=== PATIENT | female | born 1950 | race Caucasian/White ===

== ENCOUNTER 2022-09-02 12:06 | Outpatient (CLI) | payer MEDICARE, BC, SELFPAY ==
[2022-09-02 22:56] LABS: Basophils Absolute Auto 0.04 K/uL (0.00-0.30); Basophils Percent Auto 0.5 % (0.0-3.0); Eosinophils Absolute Auto 0.17 K/uL (0.00-0.50); Hematocrit 39.6 % (33.0-51.0); Immature Granulocytes Abs Auto 0.01 K/uL (0.00-0.30); Immature Granulocytes Pct Auto 0.1 %; Lymphocytes Absolute Auto 2.22 K/uL (0.90-2.90); Lymphocytes Percent Auto 25.6 % (20-44); Mean Corpuscular HGB Conc 33 gm/dL (32-36); Mean Corpuscular Hemoglobin 29 pg (26-34); Mean Corpuscular Volume 88 fL (80-100); Monocytes Percent Auto 8.1 % (0.0-11.0); Neutrophils Absolute Auto 5.54 K/uL (1.7-7.0); Neutrophils Percent Auto 63.7 % (42.0-72.0); Platelet Count* 303 K/uL (140-440); Red Blood Count 4.51 m/uL (4.00-5.20); White Blood Count* 8.68 K/uL (4.50-11.00)
[2022-09-02 22:57] LABS: Slide Review Reflex No
[2022-09-02 23:13] LABS: Chloride* 105 mmol/L (96-114); Potassium* 3.7 mmol/L (3.6-5.1); Sodium* 138 mmol/L (135-149)
[2022-09-02 23:15] LABS: Alkaline Phosphatase* 99 U/L (40-150); Aspartate Amino Transferase* 33 U/L (12-35); Bilirubin Total* 0.9 mg/dL (0.1-1.5); Carbon Dioxide* 27 mmol/L (20-32); Cholesterol* 138 mg/dL (90-199); Creatinine* 0.6 mg/dL (0.5-1.5); Estimated Glomerular Filt Rate 96 ml/min; Total Protein* 6.3 g/dL (6.0-8.3)
[2022-09-02 23:16] LABS: Alanine Aminotransferase* 30 U/L (4-35); Blood Urea Nitrogen* 22 mg/dL (7-30); Calcium* 10.1 mg/dL (8.4-10.6); Glucose* 90 mg/dL (60-115); HDL Cholesterol* 44 mg/dL (>=50); LDL Cholesterol Calculated 64 mg/dL (<100); Triglycerides* 148 mg/dL (40-149)
[2022-09-05 05:04] LABS: Vitamin D, 1,25-Dihydroxy 49.7 pg/mL (19.9-79.3)
== END 2022-09-02 12:07 | disposition home or self-care (01) ==
PROVIDERS: PCP Family Medicine; Visit Provider Physician Assistant
DX: E78.5 Hyperlipidemia, unspecified (principal); I10 Essential (primary) hypertension; E66.9 Obesity, unspecified; S82.402A Unspecified fracture of shaft of left fibula, initial encounter for closed fracture; Z13.21 Encounter for screening for nutritional disorder; M85.80 Other specified disorders of bone density and structure, unspecified site
CPT/HCPCS: 80053; 80061; 82652; 85025

== ENCOUNTER 2022-09-03 07:31 | Day surgery (SDC) | payer MEDICARE, BC, SELFPAY ==
[2022-09-03] VITALS (11 sets, daily range): BP systolic 116–162; BP diastolic 45–85; PULSE 59–76; RESP 16–18; TEMP 36.4–36.6; O2SAT 92–98; BMI 32.3
[2022-09-03] MEDS: LACTATED RINGERS 1000 ML 1,000 ML 100 ML IV (07:50)
[2022-09-03] MEDS: SODIUM CHLORIDE 0.9 % (FLUSH) 10 ML SYRINGE IVF (07:50)
--- NOTE | 2022-09-03 07:58 | SUR.PREOP ---
Patient's home covid test negative.
[2022-09-03] MEDS: MIDAZOLAM HCL 1 MG/ML inj IVP (09:17)
[2022-09-03] MEDS: fentaNYL 100 MCG/2 ML inj IVP (09:17)
--- NOTE | 2022-09-03 09:28 | SUR.PREOP ---
TIME?OUT:?0915 PT/Rico OLIVIA RN/Tesfaye GAONA MDA?VERIFICATION?OF?SURGICAL?SITE,?PROCEDURE,?AND?CONSENT OBTAINED?PRIOR?TO?INVASIVE?PROCEDURE.
[2022-09-03] MEDS: CEFAZOLIN 2 GM INJ IVP (09:40)
--- NOTE | 2022-09-03 09:45 | CRLHL7_ITS ---
For Patients: As a result of the Cures Act, medical imaging exams and procedure reports are released immediately into your electronic medical record. You may view this report before your referring provider. If you have questions, please contact your health care provider. Indication: Left Ankle IM Nailing Technique: Two fluoroscopic images of the left ankle. Fluoroscopic time 55.2 seconds. IMPRESSION: Fluoroscopic guidance for open reduction internal fixation of fibular fracture Dictated by Kin Torres MD @ 09/03/2022 11:09:47 AM (Electronically Signed)
--- NOTE | 2022-09-03 10:24 | P.ORPRC_ITS ---
Procedure Note Date of procedure: 09/03/22 Procedure: PREOPERATIVE DIAGNOSIS: Left ankle Duque B fracture POSTOPERATIVE DIAGNOSIS: Left ankle Duque B fracture NAME OF OPERATION: ORIF SURGEON: Rupert Miramontes MD PREPRESS MANAGER: PAOLO Bar ANESTHESIA: Spinal plus popliteal block ESTIMATED BLOOD LOSS: 0 mL COMPLICATIONS: None SPECIMENS: None DRAINS: None PREOPERATIVE ANTIBIOTICS: Ancef 2 g INDICATIONS: The patient is a 71-year-old who sustained a left ankle fracture. There is 1-2 mm of widening on a gravity stress mortise view. Therefore, ORIF was recommended. The risks, benefits and expected outcomes were discussed in detail. These included but were not limited to: Infection, bleeding, injury to blood vessel or nerve, venous thromboembolism. All questions were answered to their satisfaction. Use of an wet process miller head assistant was necessary throughout the case for patient positioning and safety, soft tissue retraction and closure. PROCEDURE: A popliteal block was placed by anesthesia. Spinal anesthesia was administered. The lower extremity was prepped and draped in the usual sterile fashion. A guide pin was placed in the center of the distal fragment of the fibula, percutaneously. Its placement was confirmed with the image intensifier in multiple views. A stab incision was made around the guide pin. The opening Reamer was used. The guide pin was removed. The reduction finger was placed in the distal fragment. The distal fragment was held reduced. The reduction fi nger was taken across the fracture site. The longer, flexible guide pin was placed across the fracture, engaging the canal of the proximal fragment. The opening reamer was placed again, past the fracture site. The 3.2 mm Reamer was Used in the proximal fragment. We placed the Arthrex 3 mm x 130 mm Intramedullary nail. The talons were deployed. We placed 2 screws in the distal fragment. Abduction stress was placed on the foot. There is no widening through the syndesmosis. The nozzle and sleeve worker was removed, the end cap was placed. This provides an anatomic reduction of the fibula with excellent fixation. Implants were imaged in the AP, mortise and lateral views and were felt to be well placed with an excellent reduction. The talus is nicely reduced under the tibial plafond. The wounds were irrigated with normal saline. The wet process miller head assistant closed the skin with a 4-0 Monocryl in a subcuticular fashion. Glue was used to seal the skin. The wet process miller head assistant placed a dry dressing and short leg Esteban Olivo splint. Sponge and needle counts were correct x 2. The patient tolerated the procedure well. There were no apparent complications. They were carefully transferred to the hospital bed and taken to the postanesthesia care unit in satisfactory condition. PLAN: The patient will be discharged to home. They will remain strict nonweightbearing on the lower extremity. They will continue to work on ice and elevation. They will follow up in the office in 2 weeks for a wound check and three views of the ankle out of the splint, prior to being seen, in preparation for a CAM walker, early weight-bearing and physical therapy.
--- NOTE | 2022-09-03 10:41 | W.ANESCHARGE ---
Anesthesia Charges Start Date/Time Anesthesia Start Date: 09/03/22 Anesthesia Start Time: 09:28 Stop Date/Time Anesthesia Stop Date: 09/03/22 Anesthesia Stop Time: 10:40 Summary Emergency: No Extremes of Age: Over 70-CPT 31083
--- NOTE | 2022-09-03 10:43 | W.ANESCHARGE ---
Anesthesia Charges Start Date/Time Anesthesia Start Date: 09/03/22 Anesthesia Start Time: 09:28 Stop Date/Time Anesthesia Stop Date: 09/03/22 Anesthesia Stop Time: 10:40 Summary Emergency: No Extremes of Age: Over 70-CPT 98563
--- NOTE | 2022-09-03 10:44 | W.PM.NB ---
Nerve Block Nerve Block Time Seen by Provider: 09:20 Date Seen: 09/03/22 Type of block requested by surgeon for post-operative analgesia: popliteal Side: left Time out performed: Yes Verification of patient name: Yes Verification of date of : Yes Site marking: site marked Name of person performing procedure: Tl Continuous monitoring Was continuous monitoring of O2 sat, B/P, patient monitor, recorded every 15 minutes?: Yes Procedure Checklist: sterile prep, needles and gloves Ultrasound guided. Images saved: Yes Medications given in 5ml increments after negative aspiration: Ropivicaine %: 0.5 mL: 20 Needle gauge: 20 Patient tolerated procedure well: Yes Additional comments: Needle noted adjacent to nerve Block Charges Block Charge (with Pro Fee): Sciatic Nerve Use of Ultrasound Machine for Block: Yes- US Guidance/pain block
--- NOTE | 2022-09-03 10:45 | W.PM.NB ---
Nerve Block Nerve Block Time Seen by Provider: 09:20 Date Seen: 09/03/22 Type of block requested by surgeon for post-operative analgesia: adductor canal Side: left Time out performed: Yes Verification of patient name: Yes Verification of date of : Yes Site marking: site marked Name of person performing procedure: Tl Continuous monitoring Was continuous monitoring of O2 sat, B/P, property assessment monitor, recorded every 15 minutes?: Yes Procedure Checklist: sterile prep, needles and gloves Ultrasound guided. Images saved: Yes Medications given in 5ml increments after negative aspiration: Ropivicaine %: 0.5 mL: 20 Needle gauge: 20 Patient tolerated procedure well: Yes Additional comments: Needle noted adjacent to nerve Block Charges Block Charge (with Pro Fee): Femoral Nerve Use of Ultrasound Machine for Block: Yes- US Guidance/pain block
== END 2022-09-03 12:03 | disposition home or self-care (01) ==
PROVIDERS: PCP Family Medicine; Visit Provider Orthopaedic Surgery
PROC: (CPT 27792; principal; 2022-09-03 09:45)
DX: S82.892A Other fracture of left lower leg, initial encounter for closed fracture (principal)
CPT/HCPCS: 27792; 01480; 64445; 64447; 73610; 76000; 76942; 99100; C1713; C1776; J0690; J1100; J2250; J2400; J2405; J2704; J2795; J3010; J7120

== ENCOUNTER 2022-11-27 10:02 | Outpatient (CLI) | payer MEDICARE, BC, SELFPAY ==
--- NOTE | 2022-11-27 10:15 | CRLHL7_ITS ---
For Patients: As a result of the Century Cures Act, medical imaging exams and procedure reports are released immediately into your electronic medical record. You may view this report before your referring provider. If you have questions, please contact your health care provider. BILATERAL SCREENING MAMMOGRAM WITH COMPUTER-AIDED DETECTION AND TOMOSYNTHESIS TECHNIQUE: CC and MLO views were obtained. These mammographic images have been obtained using full-field digital technique. These mammographic images were interpreted with the benefit of computer-aided detection. Breast Tomosynthesis was used in this interpretation. COMPARISON FILM: 10/16/21, 09/12/2020, 08/19/2019. FINDINGS: There are scattered areas of fibroglandular density. IMPRESSION: There is no radiographic evidence for malignancy. ASSESSMENT: BI-RADS Category 1: Negative RECOMMENDATION: Routine screening mammogram in 1 year. A lay language report of this examination will be provided to the patient. Kin Torres M.D. Diagnostic Radiologist [email or web address] STEFAN/adia Transcribed: 12:47 p.m. PT/Dictated by: Kin Torres MD @ 11/27/2022 12:03:00 PM (Electronically Signed)
== END 2022-11-27 10:03 | disposition home or self-care (01) ==
LOC: MAMMO 10:04
PROVIDERS: PCP Family Medicine; Visit Provider Family Medicine
DX: Z12.31 Encounter for screening mammogram for malignant neoplasm of breast (principal)
CPT/HCPCS: 77063; 77067

== ENCOUNTER 2023-07-01 09:01 | Outpatient (CLI) | payer MEDICARE, BC, SELFPAY ==
--- NOTE | 2023-07-01 09:15 | MR_ITS ---
[address] [address] Phone:?[phone] Fax:?[phone] Referring Physician Information: Rupert Miramontes M.D. [id number] [facility] [address] Phone:?[phone] Fax:?[phone] Patient:Peggy Aranda D.O.B:?1950 Sex:?Female Phone:?[phone] [facility] MRN:?[id number] Exam Date:?07/01/2023 EXAM: MRI OF THE LEFT KNEE CLINICAL INFORMATION: The patient is a 72-year-old with left knee pain. Evaluate for medial meniscal tear. PRIOR SURGERY: None reported. COMPARISON STUDIES: There are no prior studies available for comparison. TECHNICAL INFORMATION: Imaging was performed on a high-field, 1.5 Mirna MR scanner. Axial proton-density and fat-suppressed T2 imaging of the left knee was performed in addition to sagittal proton-density and fat-suppressed proton- density imaging. Coronal proton-density and coronal STIR imaging was also performed. FINDINGS: Articular/Extraarticular collections: Effusion: Mild. Popliteal cyst: Small to moderate, seen on sagittal series 6 image 10. Loose bodies: There is a loose body along the posterior aspect of the medial meniscal root on sagittal series 6 image 15, measuring approximately 7 mm in greatest dimension. No other well-defined intra-articular loose bodies are noted. Subcutaneous and extraarticular soft tissues: Nonspecific subcutaneous soft tissue edema and/or hemorrhage can be seen along the anterior, anteromedial, and anterolateral aspects of the left knee. Osseous structures: Cortical irregularity and subcortical cystic changes can be seen along the articular surfaces of the patellofemoral articulation with spurring along the articular margins. The findings are in keeping with patellofemoral osteoarthritis and are consistent with the chondromalacia and chondral loss described below. Additional reactive marrow edema can be seen along the medial and anteromedial aspects of the medial femoral condyle on coronal series 8 image 14 and on sagittal series 6 image 10, in keeping with chondromalacia and meniscal tearing discussed below. Benign-appearing cystic changes within the proximal fibula are noted. No other bony abnormalities are seen. Ligamentous structures: ACL: Intact and normal in appearance. PCL: Intact and normal in appearance. MCL: Intact and normal in appearance. LCL: Intact and normal in appearance. Posterolateral corner: Intact and normal in appearance. Posteromedial corner: No posteromedial corner soft tissue injury. Semimembranosus and pes anserine tendons demonstrate no tendinopathy or associated bursitis. Extensor mechanism/Patellar retinacular structures: Patellar tendon: Intact, without tendinopathy. Quadriceps tendon: Intact, without tendinopathy. Retinacula: The medial and lateral retinacula are intact. The medial patellofemoral ligament is intact. Medial compartment: Medial meniscus: The medial meniscus is abnormal in appearance. There is apical free edge and inferior surface tearing of the middle and posterior portions of the medial meniscus seen on sagittal series 5 image 12 and on coronal series 7 image 17. The area of medial meniscal tearing measures 23 mm in anteroposterior dimension and 27 mm in mediolateral dimension. The anterior horn appears intact. A small parameniscal cyst along the posterior periphery is thought to be present on sagittal series 6 image 12, measuring 5 mm in greatest dimension. Medial femoral condyle: Broad-based changes of grade II to III chondromalacia can be seen along the weightbearing surfaces of the medial femoral condyle. No full-thickness chondral defects are identified. Medial tibial plateau: Grade II chondromalacia can be seen along the weightbearing surfaces of the medial tibial plateau. Lateral compartment: Lateral meniscus: Apical free edge tearing and degeneration of the middle one third of the lateral meniscus can be seen on coronal series 7 image 18, measuring approximately 7 mm in greatest dimension. Additional degeneration, fraying, and irregularity of the posterior horn of the lateral meniscus is noted. The anterior horn appears intact. No parameniscal cyst formation is identified. Lateral femoral condyle: Grade II chondromalacia can be seen along the weightbearing surfaces of the lateral femoral condyle. Lateral tibial plateau: No chondromalacia, chondral defect, or osteochondral abnormality. Patellofemoral compartment: Patella: Full-thickness and near full-thickness chondral loss can be seen along the articular surfaces of the patella, including the apex as well as the medial and lateral facets on axial series 4 image 12. The area measures 31 mm in mediolateral dimension and 25 mm in craniocaudal dimension. Underlying bony changes are seen. Trochlea: Full-thickness and near full-thickness chondral loss can be seen along the articular surfaces of the femoral trochlea. Underlying bony changes are noted. Neurovascular: No definite neurovascular abnormalities are seen. CONCLUSION: 1. Broad-based tearing of the middle and posterior portions of the medial meniscus. There is apical free edge tearing of the middle one third of the lateral meniscus with additional degeneration and irregularity of the posterior horn. 2. Full-thickness and near full-thickness chondral loss involving the patellofemoral articulation with underlying bony change. 3. 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 4. The cruciate and collateral ligaments appear intact. 5. Mild knee joint effusion and [id number] popliteal cyst. 6. Loose body within the posterior aspect of the medial joint compartment. AEC Electronically signed on 07/01/2023 1:27:00 PM by Rusty Mcdonald M.D.
== END 2023-07-01 09:02 | disposition home or self-care (01) ==
LOC: MRI 09:02
PROVIDERS: PCP Family Medicine; Visit Provider Orthopaedic Surgery
DX: M25.562 Pain in left knee (principal); S83.242A Other tear of medial meniscus, current injury, left knee, initial encounter; M94.262 Chondromalacia, left knee; M25.462 Effusion, left knee; M71.22 Synovial cyst of popliteal space [Baker], left knee
CPT/HCPCS: 73721

== ENCOUNTER 2023-11-27 10:15 | Outpatient (RCR) | payer MEDICARE, BC, SELFPAY ==
--- NOTE | 2023-09-05 15:24 | PT.OPEX ---
PT [place] Outpatient Eval PT [facility] Outpatient Eval Start: 09/05/23 13:22 Freq: Status: Active Protocol: Document 09/05/23 13:22 CARLYLE (Rec: 09/05/23 13:40 BJGwen [id number]) E-signed By Jessica Naranjo DPT Physical Therapy Outpatient Evaluation Insurance Information Recert Due Date 12/04/23 Insurance Name Medicare B,[employer] Medical Diagnosis L knee pain L lateral/medial meniscus tear , L knee OA, L knee loose body Treating Diagnosis L knee pain/swelling, L knee weakness, limited tolerance for extended standing/walking/ stairs Subjective Subjective Patient reports chronic L knee pain/swelling, increased with activity including extended standing/walking and stairs. She reports pain range of 0-6/ 10. MD ordered an MRI showing meniscus tears, OA, and a loose body in her L knee. Patient states her treatment options included PT, knee scope, or total knee replacement. She wants to try PT to start, feels her pain has been manageable. She is able to recover from flare ups with rest and tylenol. Sleep has been ok. Patient reports being active with daily, household activities. She walks on her treadmill 1-2x/ week for about 30 mins. She has a trip planned for up [place] for hiking and snowshoeing. Patient is hoping to get an exercise program she can continue with to hold off on a knee replacement for as long as possible. Date of Last Physician Visit 08/29/23 Current Work Status Retired Precautions Treatment Precautions/Contraindications HTN, OA Assessment Assessment/Impression Patient is a 72 year old female with L knee pain/ swelling, L knee weakness, core/hip/glut weakness, limited tolerance for extended standing/walking/stairs. Pain range 0-6/10. Patient reports having recent MRI showing meniscus tears, OA, and a loose body in her L knee . She has increased pain/ swelling with increased activity including extended standing/walking, stairs. She is using tylenol, rest to manage her pain/sx. Reports hx of L ankle fx about 1 year ago when she fell on the ice. L knee ROM 0-0-135 degrees. R knee ROM 0-0-140 degrees. Patient with bilateral HS tightness, bilateral hypomobile patella. She is hoping to get a HEP to continue with to put off L knee replacement surgery as long as possible. Patient with bilateral quad/VMO weakness, core/hip/glut weakness. Gait is mildly limping, antalgic. Patient would benefit from skilled PT for pain/sx management, general strengthening including core/hip/glut/quad/ VMO to decrease stress to L knee, improved gait/stairs, and establishment of HEP. Plan of Care Rehabilitation Potential Good Physical Therapy Goals 1. Decrease L knee pain to less than/equal to 3/10 with daily/housework activities and with the progression of PT activities over the next 4-6 weeks. 2. Improve core/hip/glut/VMO/ LE strength over the next 10- 12 weeks for improved patellar position /tracking, decreased stress to knee joint, and decreased knee pain with standing/walking/stairs. 3. Improve balance/ proprioception over the next 10-12 weeks for improved stability with static/dynamic activities, improved mechanics with daily/work activities, decreased stress to knee joint , and decreased knee pain. 4. Patient will be I with HEP within 12 weeks for progression toward above goals, ongoing self management of pain/sx, ongoing self improvements in core/hip/glut/LE strength, and for return to PLF including daily/housework activities and extended standing/walking/stairs without flare up of pain. Coordination/Communication With Referral Source Treatment Plan/Direct Interventions Manual Therapy,Therapeutic Exercises Frequency/Duration 1x/week Patient Will Be Discharged From Therapy Completion of LTG(s),Skills Plateau,Independent w/HEP, Independently Progressing Evaluation Billing Untimed Code Treatment Minutes 24 Complexity Moderate Certification Information Initial Certification Date 09/05/23 Ending Certification Date 12/04/23 Provider Signature Shows Agreement With POC & Medical Necessity Physician Signature & Date Requested Please Sign/Date Here Physician Comment/Change : Physician NPI Number #
== END 2024-03-23 17:01 | disposition home or self-care (01) ==
PROVIDERS: PCP Family Medicine; Visit Provider Orthopaedic Surgery
DX: S83.272A Complex tear of lateral meniscus, current injury, left knee, initial encounter (principal); M23.42 Loose body in knee, left knee; M17.12 Unilateral primary osteoarthritis, left knee; S83.242A Other tear of medial meniscus, current injury, left knee, initial encounter; M25.562 Pain in left knee; R29.898 Other symptoms and signs involving the musculoskeletal system; M25.462 Effusion, left knee; Z51.89 Encounter for other specified aftercare
CPT/HCPCS: 97110; 97140; 97162

== ENCOUNTER 2023-12-09 10:01 | Outpatient (CLI) | payer MEDICARE, BC, SELFPAY ==
--- OUTSIDE RECORDS SUMMARY | 2023-12-09 10:04 | XMS_ITS | Clinical Summary ---
Author Name Unknown Organization [facility] Address [place], [place] [address] Care Team Providers Care Glass Lathe Operator Name Role Phone Areli Subramanian MD Primary Care Provider + Allergies Active Allergy Reactions Criticality Noted Date Comments Hydroxyzine Hives Low 01/07/2022 Oxycodone Hives Low 01/07/2022 Oxycodone-Acetaminophen Hives 03/30/2020 Medications Medication Sig Dispensed Refills Start Date End Date Status LEO GUILLEN 100 MG CAPIndications:Acute bronchitis take 1 capsule (100 mg) by oral route 3 times per day 30 0 08/31/2007 Active simvastatin (ZOCOR) 10 mg tablet Take 1 tablet by mouth at bedtime. 0 03/08/2020 Active omeprazole (PRILOSEC) 20 mg Delayed-Release capsule Take 1 capsule by mouth once daily before a meal. 0 03/08/2020 Active pramipexole (MIRAPEX) 0.5 mg tablet Take 1 tablet by mouth 3 times daily. 0 03/08/2020 Active hydroCHLOROthiazide (HCTZ) 25 mg tablet Take 1 tablet by mouth once daily. 0 03/08/2020 Active famotidine (PEPCID) 20 mg tablet Take 1 tablet by mouth 2 times daily. 0 03/08/2020 Active fluticasone (50 mcg per actuation) nasal solution (FLONASE) Inhale 1 [place] in the nostril(s) once daily. 1 Bottle 03/08/2020 Active cholecalciferol (VITAMIN D) 1,000 unit tablet Take 1 tablet by mouth once daily. 0 03/08/2020 Active multivitamin capsule Take 1 capsule by mouth once daily. 0 03/08/2020 Active calcium carbonate (CALCIUM 500) 500 mg calcium (1,250 mg) tablet Take 1 tablet by mouth 3 times daily with meals. 0 03/08/2020 Active aspirin chewable 81 mg chewable tablet Take 1 tablet by mouth once daily with a meal. 0 03/08/2020 Active calcium carbonate-vitamin D3 600 mg-20 mcg (800 unit) tab Daily Active Active Problems Problem Noted Date Diagnosed Date Sensorineural hearing loss, asymmetrical 007 Immunizations Name Administration Dates Next Due Influenza, IIV3 (Age >=3 years) 06/24/2007 Social History Tobacco Use Types Packs/Day Years Used Date Smoking Tobacco: Never Smokeless Tobacco: Never Tobacco Cessation:Counseling Given: Yes Alcohol Use Standard Drinks/Week Comments Yes 1 (1 standard drink = 0.6 oz pur e alcohol) Social Connections Answer Date Recorded Frequency of Communication with Friends and Fami ly Not on file 08/25/2021 Financial Resource Strain Answer Date R ecorded Difficulty of Paying Living Expenses Not on file 08/25/2021 Difficulty of Paying Living Expenses Not on file 08/25/2021 Sex and Gender Information Value Date Recorded Sex Assigned at Not on file Gender Identity Not on file Sexual Orientation Not on file Obstetrics History Last Filed Vital Signs Vital Sign Reading Time Taken Comments Blood Pressure 136/87 03/30/2020 11:05 AM CDT Pulse 75 03/30/2020 11:05 AM CDT Temperature 36.7 ??C (98.1 ??F) 08/31/2007 9:02 AM CS T Respiratory Rate - - Oxygen Saturation 97% 03/30/2020 11:05 AM CDT Inhaled Oxygen Concentration - - Weight 95 kg (209 lb 6.4 oz) 03/08/2020 3:41 PM CDT Height - - Body Mass Index - - Plan of Treatment Health Maintenance Due Date Last Done Comments Tdap 1961 Depression screening for age 12+ 1962 BMI (ht and wt on same day) for age 18+ 1968 Hepatitis C screening for ag e 18-79 1968 Tetanus booster 1970 Colonoscopy through age 75 11/10/1995 Lipids for age 45-75 11/10/1995 Zoster (shingles) series for age 50+ (1 of 2) 2000 Mammogram for age 45-75 06/24/2008 06/24/2007 DEXA/DXA scan for age 65+ 11/10/2015 Medicare Wellness for age 65+ 11/10/2015 Pneumococcal series for age 65+ (1 of 1 - PCV) 11/10/2015 COVID-19 vaccine series (5 - 2022- season) 2023 12/25/2021, 05/23/2021, 10/07/2020, Additional history exists Influenza for age 65+ 04/25/2024 06/24/2007 Procedures Procedure Name Priority Date/Time Associated Diagnosis Comments XR MAMMO BILAT SCREEN FFDM (IA) Routine 06/24/2007 2:23 PM CDT Screening Mammogram Other from Last 3 Months or Most Recently Relevant to Health Maintenance Results * XR MAMMO BILAT SCREEN FFDM (06/24/2007 2:23 PM CDT) MAMMOGRAM ACR 2 Benign Finding Anatomical Region Laterality Modality BREASTS, Breast Left, Breast Right Bilateral Mammography 06/24/2007 2:23 PM CDT Narrative 06/26/2007 9:07 AM CDT Please see scanned document for results of this study. Procedure Note Remy Parnell, - 06/26/2007 Please see scanned document for results of this study. Luci Triplett DO MAMMO from Last 3 Months or Most Recently Relevant to Health Maintenance Care Teams Glass Lathe Operator Relationship Specialty Start Date End Date Areli Subramanian MD [address] [place] [address] PCP - General Family Practice 03/31/20
--- NOTE | 2023-12-09 10:15 | MM_ITS ---
Patient: MILAN BLUM Facility:?[facility] Patient ID:?[id number] Site Patient ID:?[id number]. Site :?[id number] Study:?XRay-Breast Bilateral 3D screening mammogram w/cad-12/09/2023 10:37:17 AM Ordering Physician:RESHMA Final Report: BILATERAL SCREENING MAMMOGRAM WITH COMPUTER-AIDED DETECTION AND TOMOSYNTHESIS TECHNIQUE: CC and MLO views were obtained. These mammographic images have been obtained using full-field digital technique. These mammographic images were interpreted with the benefit of computer-aided detection. Breast Tomosynthesis was used in this interpretation. COMPARISON FILM: 11/27/22, 10/16/21, 09/22/20. FINDINGS: There are scattered areas of fibroglandular density. IMPRESSION: There is no radiographic evidence for malignancy. ASSESSMENT: BI-RADS Category 1: Negative RECOMMENDATION: Routine screening mammogram in 1 year. A lay language report of this examination will be provided to the patient. Kin Torres M.D. Diagnostic Radiologist [email or web address] DSM/sp R& Transcribed: 1:53 p.m. SP/Dictated by: Kin Torres MD @ 12/09/2023 11:37:00 AM Signed by:?Kin Torres MD @12/09/2023 2:34:44 PM (Electronic Signature)
== END 2023-12-09 10:02 | disposition home or self-care (01) ==
LOC: MAMMO 10:02
PROVIDERS: PCP Family Medicine; Visit Provider Family Medicine
DX: Z12.31 Encounter for screening mammogram for malignant neoplasm of breast (principal)
CPT/HCPCS: 77063; 77067

== ENCOUNTER 2023-12-11 07:55 | Outpatient (CLI) | payer MEDICARE, BC, SELFPAY ==
--- OUTSIDE RECORDS SUMMARY | 2023-12-15 08:38 | XMS_ITS | Clinical Summary ---
Author Name Unknown Organization [facility] Address [place], [place] [address] Care Team Providers Care Brush Sander Name Role Phone Areli Subramanian MD Primary [...] per actuation) nasal solution (FLONASE) Inhale 1 [place] in the nostril(s) once daily. 1 Bottle [...] Recently Relevant to Health Maintenance Care Teams Brush Sander Relationship Specialty Start Date End Date Areli Subramanian MD [address] [place] [address] PCP - General Family Practice 03/31/20
== END 2023-12-11 07:56 | disposition home or self-care (01) ==
LOC: NFLDREF 12-15 08:37
PROVIDERS: PCP Family Medicine; Referring Provider Family Medicine; Visit Provider Family Medicine
DX: E78.5 Hyperlipidemia, unspecified (principal); I10 Essential (primary) hypertension; M85.89 Other specified disorders of bone density and structure, multiple sites; M81.0 Age-related osteoporosis without current pathological fracture
CPT/HCPCS: 80053; 80061; 82306

== ENCOUNTER 2024-02-19 07:16 | Outpatient (CLI) | payer MEDICARE, BC, SELFPAY ==
--- OUTSIDE RECORDS SUMMARY | 2024-02-19 07:18 | XMS_ITS | Clinical Summary ---
Author Organization [employer] [facility] Address [place], [place] [address] Care Team Providers Care Edger Saw Operator Name Role Phone Areli Subramanian MD [...] per actuation) nasal solution (FLONASE) Inhale 1 [place] in the nostril(s) once daily. 1 Bottle [...] PCV) 11/10/2015 COVID-19 vaccine series (5 - 2022-24 season) 2023 12/25/2021, 05/23/2021, 10/07/2020, Additional history [...] of this study. Procedure Note Remy Parnell, DO - 06/26/2007 Please see scanned document for results of this study. Luci Triplett DO MAMMO from Last 3 Months or Most Recently Relevant to Health Maintenance Care Teams Edger Saw Operator Relationship Specialty Start Date End Date Areli Subramanian MD [address] [place] [address] PCP - General Family Practice 03/31/20
--- NOTE | 2024-02-19 08:10 | W.ANESCHARGE ---
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
== END 2024-02-19 07:17 | disposition home or self-care (01) ==
LOC: OP CLINIC 07:17
PROVIDERS: PCP Family Medicine; Visit Provider Internal Medicine
DX: Z86.010 Personal history of colon polyps (principal)
CPT/HCPCS: 00812; 45378; 99100; J2704

== ENCOUNTER 2024-06-13 20:13 | Emergency (ER) | payer MEDICARE, BC, SELFPAY ==
[2024-06-13] VITALS (21 sets, daily range): BP systolic 113–143; BP diastolic 54–104; PULSE 55–122; RESP 16–18; TEMP 36.7; O2SAT 92–98; BMI 30.7
--- OUTSIDE RECORDS SUMMARY | 2024-06-13 20:41 | XMS_ITS | Clinical Summary ---
Author Organization [employer] [facility] [employer] [facility] [employer] Address [place], [place] [address] Care Team Providers Care Air Plant Engineer Name Role Phone Areli Subramanian MD Primary [...] per actuation) nasal solution (FLONASE) Inhale 1 [place] in the nostril(s) once daily. 1 Bottle [...] PCV) 11/10/2015 COVID-19 vaccine series (5 - season) 2024 12/25/2021, 05/23/2021, 10/07/2020, Additional history exists Influenza [...] Recently Relevant to Health Maintenance Care Teams Air Plant Engineer Relationship Specialty Start Date End Date Areli Subramanian MD [address] [place] [address] PCP - General Family Practice 03/31/20
--- NOTE | 2024-06-13 20:45 | CRLHL7_ITS ---
For Patients: As a result of the Century Cures Act, medical imaging exams and procedure reports are released immediately into your electronic medical record. You may view this report before your referring provider. If you have questions, please contact your health care provider. INDICATION: SOB. TECHNIQUE: Chest 2 views. COMPARISON: 05/20/2019. FINDINGS: Cardiovascular and mediastinum: Heart size is normal. Unremarkable mediastinum. Lungs and pleural spaces: Lungs are clear. No sign of infiltrate or mass. No sign of pleural effusion. No pneumothorax. Bones and soft tissues: No significant findings. IMPRESSION: No acute findings and no significant changes from the prior exam. Dictated by Kin Lewis MD @ 06/13/2024 9:36:20 PM (Electronically Signed)
--- NOTE | 2024-06-13 20:58 | ED.ARRPALP ---
HPI - Arrhythmia/Palpitations General Date Seen: 06/13/24 Chief Complaint: Arrhythmia/Palpitations Stated Complaint: rapid heart beat Time Seen by Provider: 06/13/24 20:19 Source: patient and family Mode of arrival: ambulatory Limitations: no limitations History of Present Illness HPI narrative: Patient is a delightful 73-year-old female who presents here with a history of tachycardia with some irregularity at home at approximately 7:30 p.m. she was on the couch, not doing anything when she noticed that her heart was beating fast and she felt some mild shortness of breath, but no chest pain there is no radiation of discomfort, she was not nauseous and she was not sweating. Her Apple watch said it was going approximately 160. Her took it at 1:40 a.m. issues. With blood pressures that were all between 150 and 120 systolic. She says she still feels a little bit of shortness of breath, and actually felt a little bit like her heart was racing but clearly here on the monitor she is in the mid 80s in normal sinus rhythm. No previous history of this occurring before, is some remote history of a possible TIA, she does have a history of hypertension and hyperlipidemia. But no previous coronary artery disease. Or other issues she is a nonsmoker did not take any alcohol today, actually they went to the zoo today. With her grandchildren she is not on any cold medicine MD complaint: rapid heart beat, skipped beats and palpitations Onset (ago): minute(s) Duration: now resolved Context: occurred during rest Associated symptoms: shortness of breath Related Data Home Medications ?Medication ?Instructions ?Recorded ?Confirmed cholecalciferol (vitamin D3) PO 05/11/22 12/16/23 multivitamin (Daily Multi-Vitamin 1 tab PO QAM 08/31/22 12/16/23 tablet) calcium 600 mg (as 1 tab PO DAILY 09/02/22 12/16/23 carbonate)-vitamin D3 20 mcg (800 unit) tablet aspirin 325 mg tablet 325 mg PO QDAY 09/24/22 12/16/23 Previous Rx's ?Medication ?Instructions ?Recorded amlodipine 5 mg tablet 5 mg PO QDAY #90 tabs 12/16/23 hydrochlorothiazide 25 mg tablet 25 mg PO QDAY #90 tabs 12/16/23 omeprazole 20 mg capsule,delayed 20 mg PO QDAY #90 caps 12/16/23 release pramipexole 0.5 mg tablet 0.5 mg PO BID #180 tabs 12/16/23 simvastatin 10 mg tablet 10 mg PO QHS #90 tabs 12/16/23 peg 3350-electrolytes 236 240 ml PO ONCE #4,000 mL 02/16/24 gram-22.74 gram-6.74 gram-5.86 gram solution (Golytely) potassium chloride 10 mEq 10 meq PO TID #90 tabs 06/13/24 tablet,extended release Allergies Allergy/AdvReac Type Severity Reaction Status Date / Time hydroxyzine Allergy Intermediate Hives Verified 12/16/23 09:34 oxycodone [From Percocet] Allergy Intermediate Hives Verified 12/16/23 09:34 Review of Systems Status of ROS: Reports: 10 or more systems reviewed and unremarkable except as noted in History and below [facility] Medical History Tickle in throat ?R09.89 - Other specified symptoms and signs involving the circulatory and respiratory systems (ICD-10) GERD (gastroesophageal reflux disease) ?K21.9 - Gastro-esophageal reflux disease without esophagitis (ICD-10) Wrinkles ?L98.8 - Other specified disorders of the skin and subcutaneous tissue (ICD-10) Transient ischemic attack (05/2012) ?G45.9 - Transient cerebral ischemic attack, unspecified (ICD-10) Restless legs syndrome (11/14/10) ?G25.81 - Restless legs syndrome (ICD-10) Osteopenia (2010) ?M85.80 - Other specified disorders of bone density and structure, unspecified site (ICD-10) Obstructive sleep apnea treated with continuous positive airway pressure (CPAP) (01/2020) ?G47.33 - Obstructive sleep apnea (adult) (pediatric) (ICD-10) ?Z99.89 - Dependence on other enabling machines and devices (ICD-10) Obesity with body mass index (BMI) of 30.0 to 39.9 ?E66.9 - Obesity, unspecified (ICD-10) Hyperlipidemia ?E78.5 - Hyperlipidemia, unspecified (ICD-10) Hearing loss (09/27/09) ?H91.90 - Unspecified hearing loss, unspecified ear (ICD-10) Essential hypertension (06/24/12) ?I10 - Essential (primary) hypertension (ICD-10) Closed bimalleolar fracture of right ankle (2014) ?S82.841A - Displaced bimalleolar fracture of right lower leg, initial encounter for closed fracture (ICD-10) Chronic gastroesophageal reflux disease ?K21.9 - Gastro-esophageal reflux disease without esophagitis (ICD-10) Chronic cough ?R05.3 - Chronic cough (ICD-10) Adenomatous polyp of colon ?D12.6 - Benign neoplasm of colon, unspecified (ICD-10) Surgical History S/P ORIF (open reduction internal fixation) fracture (09/03/22) ?Z98.890 - Other specified postprocedural states (ICD-10) ?Z87.81 - Personal history of (healed) traumatic fracture (ICD-10) Status post open reduction with internal fixation (ORIF) of fracture of ankle (03/15/15) ?Z98.890 - Other specified postprocedural states (ICD-10) ?Z87.81 - Personal history of (healed) traumatic fracture (ICD-10) History of total hysterectomy with bilateral salpingo-oophorectomy (BSO) (1999) ?Z90.710 - Acquired absence of both cervix and uterus (ICD-10) ?Z90.722 - Acquired absence of ovaries, bilateral (ICD-10) ?Z90.79 - Acquired absence of other genital organ(s) (ICD-10) History of local excision of skin lesion (11/2017) ?Z98.890 - Other specified postprocedural states (ICD-10) Basal cell carcinoma (BCC) (2014) ?C44.91 - Basal cell carcinoma of skin, unspecified (ICD-10) Family History Father History of coronary artery stent placement, Onset Age: 70 Mother Hemorrhagic stroke, Onset Age: 83 Brother Colon cancer, Onset Age: 64 Sister Colon cancer, Onset Age: 57 Aunt Breast cancer, Onset Age: 80 Social History Narrative: , 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, 2 adult kids Exercises 3 times a week: Walks 2-3 miles 2 alcoholic drinks a week Nonsmoker What is your current living situation?: I presently have a place to live Problems where you live: no known problems In the past 12 months, utilities in danger of being shut off: no In past 12 months, lack of transportation kept you from medical appts, meetings, work, or getting things needed for daily living: no In the past 12 mos, have been you worried that your food would run out before you had money to buy more?: never true In the past 12 mos, the food you bought just didn't last and you didn't have money to buy more?: never true Smoking Status: Never smoker How often do you have a drink containing alcohol: monthly or less AUDIT-C Alcohol total score: 1 Non-prescribed substance use: denies use Caffeine: No How often does anyone, including family, friends and others, physically hurt you: never How often does anyone, including family, friends and others, insult or talk down to you: never How often does anyone, including family, friends and others, threaten you with harm: never How often does anyone, including family, friends and others, scream or curse at you: never Little interest or pleasure in doing things: not at all Feeling down, depressed, or hopeless: not at all Exam Narrative: Exam Narrative: On examination in room 8 she is in no apparent distress speaking to me normally her pupils equal round reactive to light there is no scleral icterus redness or TMs are normal oropharynx is normal there is no adenopathy anterior posterior chains her chest is good air entry bilateral with no wheezing crackles noted heart sounds no clicks murmurs or gallops her abdomen is soft there is no guarding no organomegaly. Bowel sounds are beto, skin reveals no petechiae rashes she is neurologically intact moving her lower extremities, with no evidence of abnormality. Const: Vital Signs, click to edit/add: Vital Signs - 24 hr 06/13/24 20:16 06/13/24 20:34 06/13/24 20:40 Temperature 98.1 F Pulse Rate 93 Pulse Rate [Left P ulse Oximeter] 122 H Respiratory Rate 16 Blood Pressure Blood Pressure [Ri ght Upper Arm] 143/104 H Pulse Oximetry 94 95 97 Oxygen Delivery Me thod Room Air 06/13/24 20:45 06/13/24 21:00 06/13/24 21:02 Temperature Pulse Rate 80 83 74 Pulse Rate [Left P ulse Oximeter] Respiratory Rate 16 Blood Pressure 132/69 Blood Pressure [Ri ght Upper Arm] Pulse Oximetry 97 94 92 Oxygen Delivery Me thod Room Air 06/13/24 21:18 06/13/24 21:30 06/13/24 21:45 Temperature Pulse Rate 77 72 72 Pulse Rate [Left P ulse Oximeter] Respiratory Rate Blood Pressure Blood Pressure [Ri ght Upper Arm] Pulse Oximetry 94 93 96 Oxygen Delivery Me thod 06/13/24 22:00 06/13/24 22:03 06/13/24 22:04 Temperature Pulse Rate 71 65 55 L Pulse Rate [Left P ulse Oximeter] Respiratory Rate 16 Blood Pressure 113/54 L Blood Pressure [Ri ght Upper Arm] Pulse Oximetry 96 98 97 Oxygen Delivery Me thod Room Air 06/13/24 22:15 06/13/24 22:30 06/13/24 22:45 Temperature Pulse Rate 62 60 60 Pulse Rate [Left P ulse Oximeter] Respiratory Rate Blood Pressure Blood Pressure [Ri ght Upper Arm] Pulse Oximetry 94 95 94 Oxygen Delivery Me thod 06/13/24 23:00 06/13/24 23:02 06/13/24 23:15 Temperature Pulse Rate 64 65 66 Pulse Rate [Left P ulse Oximeter] Respiratory Rate 18 Blood Pressure 125/66 Blood Pressure [Ri ght Upper Arm] Pulse Oximetry 96 96 94 Oxygen Delivery Me thod Room Air 06/13/24 23:30 06/13/24 23:45 06/13/24 23:47 Temperature Pulse Rate 71 71 Pulse Rate [Left P ulse Oximeter] Respiratory Rate 16 Blood Pressure Blood Pressure [Ri ght Upper Arm] Pulse Oximetry 92 97 Oxygen Delivery Me thod Documenting provider has reviewed patient's vital signs: yes Course Vital Signs Vital signs: Initial Vital Signs Temperature 98.1 F 06/13/24 20:16 Temperature Source Temporal Artery Scan 06/13/24 20:16 Pulse Rate 122 H 06/13/24 20:16 Respiratory Rate 16 06/13/24 20:16 Blood Pressure 143/104 H 06/13/24 20:16 Blood Pressure Mean 117 H 06/13/24 20:16 Blood Pressure Position Sitting 06/13/24 20:16 Pulse Oximetry 94 06/13/24 20:16 Oxygen Delivery Method Room Air 06/13/24 20:16 Vital Signs Temperature 98.1 F 06/13/24 20:16 Pulse Rate 122 H 06/13/24 20:16 Respiratory Rate 16 06/13/24 20:16 Blood Pressure 143/104 H 06/13/24 20:16 Pulse Oximetry 94 06/13/24 20:16 Oxygen Delivery Method Room Air 06/13/24 20:16 Temperature 98.1 F 06/13/24 20:16 Pulse Rate 71 06/13/24 23:45 Respiratory Rate 16 06/13/24 23:47 Blood Pressure 125/66 06/13/24 23:02 Pulse Oximetry 97 06/13/24 23:45 Oxygen Delivery Method Room Air 06/13/24 23:02 Medications Administered Medications: Discontinued Medications Generic Name Dose Route Start Last Admin Trade Name Freq PRN Reason Stop Dose Admin Aspirin 324 mg 06/13/24 20:45 06/13/24 21:57 Aspirin 81 Mg Tab.Chew PO 06/13/24 20:46 324 mg ONCE ONE Administration Potassium Chloride 10 meq in 100 mls @ 100 mls/hr 06/13/24 21:39 06/13/24 23:38 Potassium Chloride IVPB 06/13/24 22:38 Infused ONCE ONE Infusion Potassium Chloride 40 meq 06/13/24 21:39 06/13/24 21:52 Potassium Chloride 10 Meq Capsule Er PO 06/13/24 21:40 40 meq ONCE ONE Administration MDM - Arrhythmia/Palpitations MDM Narrative Medical decision making narrative: During the evaluation of this patient I considered multiple differential diagnosis is. The life-threatening differential diagnosis include coronary disease/TX, pulmonary embolism, pneumothorax, pneumonia, and aortic dissection. Other differential diagnosis included but were not limited to pericarditis, myocarditis, chest wall pain, GERD, esophageal rupture, rib fracture contusion, pleurisy, as well as other etiologies. Medical Records Attestation: I reviewed the patient's medical records. Lab Data Attestation: I reviewed the patient's lab results. Labs: Lab Results 06/13/24 06/13/24 06/13/24 Range/Units 20:46 21:10 23:14 WBC 9.31 (4.50-11.00) K/uL RBC 4.83 (4.00-5.20) m/uL Hgb 13.6 (12.0-16.0) gm/dL Hct 41.5 (33.0-51.0) % MCV 86 (80-100) fL MCH 28 (26-34) pg MCHC 33 (32-36) gm/dL RDW Coeff of Annabella 12.3 (11.5-15.5) % Plt Count 286 (140-440) K/uL Neut % (Auto) 57.4 (42.0-72.0) % Lymph % (Auto) 31.7 (20-44) % [place] % (Auto) 8.3 (0.0-11.0) % Eos % (Auto) 2.1 (0.0-7.0) % Baso % (Auto) 0.4 (0.0-3.0) % Neut # (Auto) 5.34 (1.7-7.0) K/uL Lymph # (Auto) 2.95 H (0.90-2.90) K/uL [place] # (Auto) 0.80 (0.00-0.90) K/UL Eos # (Auto) 0.20 (0.00-0.50) K/uL Baso # (Auto) 0.04 (0.00-0.30) K/uL Abs Immat Gran (auto) 0.01 (0.00-0.30) K/uL Imm/Tot Granulo (auto) 0.1 % INR 0.98 (0.91-1.10) APTT 30 (23-33) Seconds D-Dimer Quant (PE/DVT) 0.51 H (0.00-0.50) ug/ml Sodium 136 (135-149) mmol/L Potassium 2.8 L* (3.6-5.1) mmol/L Chloride 102 (96-114) mmol/L Carbon Dioxide 26 (20-32) mmol/L Anion Gap 8 (7-15) mEq/L BUN 20 (7-30) mg/dL Creatinine 0.6 (0.5-1.5) mg/dL Estimated Creat Clear 46.90 Estimated GFR 95 ml/min Glucose 123 H (60-115) mg/dL Calcium 10.2 (8.4-10.6) mg/dL NT-Pro-B Natriuret Pep 78 pg/mL TSH 0.564 (0.270-4.20) uIU/mL POC Troponin I 0.00 L 0.01 (0.01-0.04) ng/ml 06/13/24 Range/Units 23:20 WBC (4.50-11.00) K/uL RBC (4.00-5.20) m/uL Hgb (12.0-16.0) gm/dL Hct (33.0-51.0) % MCV (80-100) fL MCH (26-34) pg MCHC (32-36) gm/dL RDW Coeff of Annabella (11.5-15.5) % Plt Count (140-440) K/uL Neut % (Auto) (42.0-72.0) % Lymph % (Auto) (20-44) % [place] % (Auto) (0.0-11.0) % Eos % (Auto) (0.0-7.0) % Baso % (Auto) (0.0-3.0) % Neut # (Auto) (1.7-7.0) K/uL Lymph # (Auto) (0.90-2.90) K/uL [place] # (Auto) (0.00-0.90) K/UL Eos # (Auto) (0.00-0.50) K/uL Baso # (Auto) (0.00-0.30) K/uL Abs Immat Gran (auto) (0.00-0.30) K/uL Imm/Tot Granulo (auto) % INR (0.91-1.10) APTT (23-33) Seconds D-Dimer Quant (PE/DVT) (0.00-0.50) ug/ml Sodium (135-149) mmol/L Potassium 3.1 L (3.6-5.1) mmol/L Chloride (96-114) mmol/L Carbon Dioxide (20-32) mmol/L Anion Gap (7-15) mEq/L BUN (7-30) mg/dL Creatinine (0.5-1.5) mg/dL Estimated Creat Clear Estimated GFR ml/min Glucose (60-115) mg/dL Calcium (8.4-10.6) mg/dL NT-Pro-B Natriuret Pep pg/mL TSH (0.270-4.20) uIU/mL POC Troponin I (0.01-0.04) ng/ml Second point of care troponin 0.01, which gives us a delta of 0. D-dimer was slightly elevated at 0.51, but age adjusted is normal. Remainder blood tests are normal, I suspect that her potassium being low at 2.8 is secondary to hydrochlorothiazide, this likely is chronic we will give her replacement here both orally and IV. And I will recheck it. Recheck is 3.1 ECG Data Attestation: I personally reviewed and interpreted this ECG as follows: ECG interpretation date: 06/13/24 Prior ECG tracings: not available for review Interpretation: EKG shows normal sinus rhythm with ventricular rate 85, no acute ST wave changes are noted. Second EKG at 23:37 shows normal sinus rhythm, no acute ST wave changes. Normal QRS QT and QTC ventricular rate 66 Discharge Plan Discharge Clinical Impression: Cardiac dysrhythmia, unspecified, Hypokalemia Patient Disposition: Home w/ Parent or Adult Condition: Improved Instructions: Potassium Content of Foods List (ED), Hypokalemia (ED) Additional Instructions: Home rest potassium as prescribed, follow-up in 2 days with primary care consider repeat potassium at that point. Return back here if increasing shortness of breath, feeling her heart racing, passing out or other symptoms. Consideration of his Zio patch also through your primary care physician. Activity Level: Light activity Prescriptions: New potassium chloride 10 mEq tablet extended release 10 meq PO TID Qty: 90 1RF Rx Instructions: take the medication as prescribed, followup with primary care in 2 days for a recheck and recheck potassium level No Action aspirin 325 mg tablet 325 mg PO QDAY cholecalciferol (vitamin D3) PO multivitamin [Daily Multi-Vitamin] Tablet 1 tab PO QAM calcium carbonate-vitamin D3 600 mg-20 mcg (800 unit) tablet 1 tab PO DAILY Rx Instructions: 600-400mg hydrochlorothiazide 25 mg tablet 25 mg PO QDAY Qty: 90 3RF pramipexole 0.5 mg tablet 0.5 mg PO BID Qty: 180 3RF Rx Instructions: Take 1 tablet 4:00 p.m. and 1 before bedtime simvastatin 10 mg tablet 10 mg PO QHS Qty: 90 3RF omeprazole 20 mg capsule,delayed release(DR/EC) 20 mg PO QDAY Qty: 90 3RF amlodipine 5 mg tablet 5 mg PO QDAY Qty: 90 3RF peg 3350-electrolytes [Golytely] 236-22.74-6.74 -5.86 gram recon soln 240 ml PO ONCE Qty: 4000 0RF Rx Instructions: 4pm day prior to procedure. Drink 8oz glass every 15 minutes until 1/2 of solution is gone. 6 hours prior to your procedure time drink 8oz glass every 15 minutes until remaining solution is gone. Follow Up/Referrals: Areli Subramanian MD [Primary Care Provider] - Stand Alone Forms: [email or web address] Info Instructions
[2024-06-13 21:17] LABS: Basophils Absolute Auto 0.04 K/uL (0.00-0.30); Basophils Percent Auto 0.4 % (0.0-3.0); Eosinophils Percent Auto 2.1 % (0.0-7.0); Hematocrit 41.5 % (33.0-51.0); Hemoglobin* 13.6 gm/dL (12.0-16.0); Immature Granulocytes Abs Auto 0.01 K/uL (0.00-0.30); Immature Granulocytes Pct Auto 0.1 %; Lymphocytes Absolute Auto 2.95 K/uL (0.90-2.90); Lymphocytes Percent Auto 31.7 % (20-44); Mean Corpuscular HGB Conc 33 gm/dL (32-36); Mean Corpuscular Hemoglobin 28 pg (26-34); Mean Corpuscular Volume 86 fL (80-100); Monocytes Percent Auto 8.3 % (0.0-11.0); Neutrophils Absolute Auto 5.34 K/uL (1.7-7.0); Neutrophils Percent Auto 57.4 % (42.0-72.0); Platelet Count* 286 K/uL (140-440); RDW Coefficient of Variation % 12.3 % (11.5-15.5); Red Blood Count 4.83 m/uL (4.00-5.20); Slide Review Reflex No; White Blood Count* 9.31 K/uL (4.50-11.00)
[2024-06-13 21:29] LABS: Chloride* 102 mmol/L (96-114); Sodium* 136 mmol/L (135-149)
[2024-06-13 21:32] LABS: Anion Gap 8 mEq/L (7-15); Blood Urea Nitrogen* 20 mg/dL (7-30); Calcium* 10.2 mg/dL (8.4-10.6); Carbon Dioxide* 26 mmol/L (20-32); Creatinine* 0.6 mg/dL (0.5-1.5); Estimated Glomerular Filt Rate 95 ml/min; Glucose* 123 mg/dL (60-115); INR 0.98 (0.91-1.10); Partial Thromboplastin Time* 30 Seconds (23-33); Prothrombin Time 13.6 Seconds
[2024-06-13 21:35] LABS: D Dimer Quantitative* 0.51 ug/ml (0.00-0.50)
[2024-06-13 21:37] LABS: Potassium* 2.8 mmol/L (3.6-5.1)
[2024-06-13 21:43] LABS: NT Pro B Type NatriureticPept* 78 pg/mL
[2024-06-13] MEDS: POTASSIUM CHLORIDE 10 MEQ CAPSULE ER 40 MEQ PO (21:52)
[2024-06-13] MEDS: POTASSIUM CHLORIDE 10 MEQ/100 ML PIGGYBACK 100 MEQ IVPB (21:53)
[2024-06-13] MEDS: ASPIRIN 81 MG TAB.CHEW 324 MG PO (21:57)
[2024-06-13 22:13] LABS: Thyroid Stimulating Hormone* 0.564 uIU/mL (0.270-4.20)
[2024-06-13 23:39] LABS: Troponin, Point-of-Care* 0.01 ng/ml (0.01-0.04)
[2024-06-13 23:49] LABS: Potassium* 3.1 mmol/L (3.6-5.1)
== END 2024-06-14 00:23 | disposition home or self-care (01) ==
PROVIDERS: Emergency Provider Family Medicine; PCP Family Medicine
DX: I49.9 Cardiac arrhythmia, unspecified (principal); E87.6 Hypokalemia
CPT/HCPCS: 36415; 71046; 80048; 83880; 84132; 84443; 84484; 85025; 85379; 85610; 85730; 93005; 94761; 96365; 99284; 99285; A9270; J3480

== ENCOUNTER 2024-06-23 08:08 | Outpatient (CLI) | payer MEDICARE, BC, SELFPAY ==
--- OUTSIDE RECORDS SUMMARY | 2024-06-23 11:14 | XMS_ITS | Clinical Summary ---
Author Organization [employer] [facility] [employer] [facility] Address [place], [place] [address] Care Team Providers Care Drop Man Name Role Phone Areli Subramanian MD Primary [...] per actuation) nasal solution (FLONASE) Inhale 1 [place] in the nostril(s) once daily. 1 Bottle [...] Recently Relevant to Health Maintenance Care Teams Drop Man Relationship Specialty Start Date End Date Areli Subramanian MD [address] [place] [address] PCP - General Family Practice 03/31/20
== END 2024-06-23 08:09 | disposition home or self-care (01) ==
LOC: NFLDREF 11:12
PROVIDERS: PCP Family Medicine; Referring Provider Family Medicine; Visit Provider Family Medicine
DX: E87.6 Hypokalemia (principal); I10 Essential (primary) hypertension; G62.9 Polyneuropathy, unspecified; R73.01 Impaired fasting glucose; G25.81 Restless legs syndrome; E66.9 Obesity, unspecified; E78.5 Hyperlipidemia, unspecified; M85.80 Other specified disorders of bone density and structure, unspecified site; I49.9 Cardiac arrhythmia, unspecified
CPT/HCPCS: 80053; 82607; 82728; 83735

== ENCOUNTER 2024-08-11 08:06 | Outpatient (CLI) | payer MEDICARE, BC, SELFPAY | END 2024-08-11 08:07 | disposition home or self-care (01) | LOC: NFLDREF 08-12 05:22 | PROVIDERS: PCP Family Medicine; Referring Provider Family Medicine; Visit Provider Family Medicine | DX: E87.6 Hypokalemia (principal) | CPT/HCPCS: 80048 ==

== ENCOUNTER 2024-12-29 12:49 | Outpatient (CLI) | payer MEDICARE, BC, SELFPAY ==
--- NOTE | 2024-12-29 13:00 | CRLHL7_ITS ---
For Patients: As a result of the Century Cures Act, medical imaging exams and procedure reports are released immediately into your electronic medical record. You may view this report before your referring provider. If you have questions, please contact your health care provider. INDICATION: BILATERAL SCREENING MAMMOGRAM, ASYMPTOMATIC 74 YEAR OLD FEMALE COMPARISON: 12/09/23, 11/27/22, 10/16/21 TECHNIQUE: CC and MLO views were obtained. These mammographic images have been obtained using full-field digital technique. These mammographic images were interpreted with the benefit of computer aided detection and tomosynthesis. BREAST COMPOSITION: There are scattered areas of fibroglandular density. FINDINGS: No suspicious findings. ASSESSMENT: BI-RADS 1 Negative RECOMMENDATION: Annual screening mammogram. A lay language report of this examination will be provided to the patient. Dictated by: Kin Torres MD @ 12/31/2024 10:07:28 (Electronically Signed)
== END 2024-12-29 12:50 | disposition home or self-care (01) ==
LOC: MAMMO 12:50
PROVIDERS: PCP Family Medicine; Visit Provider Family Medicine
DX: Z12.31 Encounter for screening mammogram for malignant neoplasm of breast (principal)
CPT/HCPCS: 77063; 77067

== ENCOUNTER 2024-12-31 07:57 | Outpatient (CLI) | payer MEDICARE, BC, SELFPAY | END 2024-12-31 07:58 | disposition home or self-care (01) | LOC: NFLDREF 01-01 08:03 | PROVIDERS: PCP Family Medicine; Referring Provider Family Medicine; Visit Provider Family Medicine | DX: I10 Essential (primary) hypertension (principal); E78.5 Hyperlipidemia, unspecified; M85.80 Other specified disorders of bone density and structure, unspecified site; R73.01 Impaired fasting glucose; M81.0 Age-related osteoporosis without current pathological fracture; R73.03 Prediabetes; E66.9 Obesity, unspecified | CPT/HCPCS: 80053; 80061; 82306 ==

== ENCOUNTER 2025-01-27 07:59 | Outpatient (CLI) | payer MEDICARE, BC, SELFPAY ==
--- NOTE | 2025-01-27 08:00 | CRLHL7_ITS ---
For Patients: As a result of the Century Cures Act, medical imaging exams and procedure reports are released immediately into your electronic medical record. You may view this report before your referring provider. If you have questions, please contact your health care provider. DXA BONE MINERAL DENSITY STUDY Current height (in): 65.5. Weight (lb): 200. Menopause age: 50. Ethnicity: White. 1. Have you had a previous hip or vertebral fracture? No. 2. Have you had any fractures during your adult life which did not result from significant trauma (e.g., auto accident)? No. 3. Did either of your parents have a hip fracture? No. 4. Do you smoke? No. 5. Have you ever taken Glucocorticoids? Yes. 6. Do you have rheumatoid arthritis? No. 7. Do you have secondary osteoporosis? No. 8. Do you drink 3 or more alcoholic drinks per day? No. 9. Are you being treated for osteoporosis? No. 10. Have you ever taken any of the following medications: Actonel, Evista, Fosamax, Miacalcin, Reclast, Boniva, Forteo, HRT (i.e. estrogen/hormone therapy), Protelos, Prolia, Vitamin D, Calcium, other ??? please specify. ANSWER: Yes, Vitamin D, HRT, and Calcium. 11. Do you have any of the following medical conditions: Anorexia or bulimia, asthma or emphysema, end stage renal disease, hyperparathyroidism, any seizure disorders, cancer, inflammatory bowel diseases, hysterectomy, other ??? please specify. ANSWER: Yes, Hysterectomy. 12. What was your maximum height (inches)? 67. 13. Do you perform weight bearing exercise regularly? No. 14. Do you regularly consume dairy products? No. 15. Do you drink caffeinated beverages? Yes. 16. At what age did your period start? 12. 17. Are you premenopausal? No. 18. How many full term pregnancies have you had? 2. 19. Have you ever missed your period for more than 6 months in a row (not including or menopause)? No. TECHNIQUE: Bone mineral density study was performed using the [employer]. FINDINGS: The results of the study expressed as bone mineral density (BMD) are as follows: Lumbar spine L1 to L3: BMD: 1.037 g/cm2. T-score: 0.2. Z-score: 2.5. Neck Left: BMD: 0.663 g/cm2. T-score: -1.7. Z-score: 0.4. Right: BMD: 0.695 g/cm2. T-score: -1.4. Z-score: 0.7. Total Left: BMD: 0.824 g/cm2. T-score: -1.0. Z-score: 0.8. Right: BMD: 0.757 g/cm2. T-score: -1.5. Z-score: 0.2. IMPRESSION: Osteopenia. COMPARISON: Compared with scan of 08/02/2020, the bone mineral density has increased by 3.0 percent at the spine and decreased by 3.2 percent at the hip. Compared with scan of 08/02/2020, the bone mineral density has increased by 5.5 percent at the spine and increased by 1.0 percent at the hip. FRAX 10-year Fracture Risk Major Osteoporotic Fracture: 17 percent Hip Fracture: 3.7 percent Reported Risk Factors: [place] () Neck BMD=0.663, BMI=3.7, glucocorticoids. Kin Torres M.D. Diagnostic Radiologist [email or web address] STEFAN/cy DW/Dictated by: Kin Torres MD @ 01/31/2025 9:00:00 AM (Electronically Signed)
== END 2025-01-27 08:00 | disposition home or self-care (01) ==
LOC: RAD 08:00
PROVIDERS: PCP Family Medicine; Visit Provider Family Medicine
DX: M85.89 Other specified disorders of bone density and structure, multiple sites (principal)
CPT/HCPCS: 77080